=== PATIENT | female | born 1935 | race Native Hawaiian/Other Pacific Islander ===

== ENCOUNTER 2016-09-11 13:15 | Outpatient (CLI) | payer OTHER | END 2016-09-11 19:11 | disposition home or self-care (01) | LOC: RAD 13:15 | DX: M81.0 Age-related osteoporosis without current pathological fracture (principal) ==

== ENCOUNTER 2016-10-29 12:25 | Outpatient (CLI) | payer OTHER | END 2016-10-29 19:28 | disposition home or self-care (01) | LOC: RAD 12:25 | DX: M54.5 Low back pain (principal) ==